=== PATIENT | female | born 1995 | race Caucasian/White ===

== ENCOUNTER 2020-07-20 11:48 | Outpatient (CLI) | payer OTHER ==
[2020-07-20 23:15] LABS: SARS-CoV-2 PCR by NAA Not Detected (NotDetected)
== END 2020-07-20 11:49 | disposition home or self-care (01) ==
LOC: CSHLAB 11:48
PROVIDERS: ATTEND Family Medicine
DX: Z20.822 Contact with and (suspected) exposure to COVID-19 (principal)
CPT/HCPCS: 87635; U0003; U0005

== ENCOUNTER 2020-07-23 10:03 | Inpatient (IN) | payer OTHER ==
[2020-07-23] MEDS ORDERED: Famotidine/PF 20 mg/2ml Vial SLOW IVP PRN (11:26)
[2020-07-23] MEDS ORDERED: hydrALAZINE 20 MG/ML VIAL SLOW IVP PRN ×2 (11:26→14:14)
[2020-07-23] MEDS ORDERED: Promethazine HCl 25 MG/ML VIAL IM PRN ×2 (11:26→14:14)
[2020-07-23] MEDS ORDERED: Lactated Ringer's 1,000 ML IV SCH (11:26)
[2020-07-23] MEDS ORDERED: CEFAZOLIN 2 GM in Premix Bag 1 BAG IVPB SCH (11:26)
[2020-07-23] MEDS ORDERED: Bicitra 30 ML UDCUP PO PRN (11:26)
[2020-07-23] MEDS ORDERED: Ondansetron PF 4 MG/2 ML Vial IVP PRN ×2 (11:26→14:14)
[2020-07-23 11:27] VITALS: BMI 40.3
[2020-07-23 11:36] LABS: Hemoglobin 9.7 g/dL (12.0-15.5); Mean Platelet Volume 10.4 fl (7.4-10.4); Platelet Count 281 10x3/uL (150-450); RBC Distribution Width 13.1 % (11.5-14.5); Red Blood Cell (RBC) Count 4.04 10x6/uL (3.90-5.03); White Blood Cell (WBC) Count 7.6 10x3/uL (3.5-10.5)
[2020-07-23] MEDS ORDERED: Morphine PF 10 MG/10 ML VIAL ONE (12:04)
[2020-07-23] MEDS ORDERED: ePHEDrine Sulfate 50 MG/10 ML VIAL ONE (12:04)
[2020-07-23 12:05] LABS: Hep B Surf Ag Non-Reactive S/CO (NonReactive)
[2020-07-23] MEDS ORDERED: Oxytocin 10 UNITS/ML VIAL ONE (12:05)
[2020-07-23 12:06] LABS: Syphilis Antibody Nonreactive (Nonreactive); Syphilis Antibody Index 0.03 S/CO (<1.00 Non-Reactive)
[2020-07-23] MEDS ORDERED: PHENYLEPHRINE-NS 100 MCG/ML 10 ML SYRINGE ONE (12:07)
[2020-07-23 12:08] LABS: HBSAg Index 0.15 S/CO (0-0.99)
[2020-07-23] MEDS ORDERED: Ondansetron PF 4 MG/2 ML Vial ONE (12:33)
[2020-07-23] MEDS ORDERED: Dexamethasone 4 mg/ml Vial ONE (12:33)
[2020-07-23] MEDS ORDERED: Adacel (T-DAP) 0.5 ML SYRINGE IM ONE (14:14)
[2020-07-23] MEDS ORDERED: Meperidine HCl/PF 25 MG/ML VIAL IM PRN (14:14)
[2020-07-23] MEDS ORDERED: Bisacodyl 10 MG SUPP PR PRN (14:14)
[2020-07-23] MEDS ORDERED: diphenhydrAMINE 25 MG CAP PO PRN (14:14)
[2020-07-23] MEDS ORDERED: Lanolin Ointment 7 GM TUBE TOP PRN (14:14)
[2020-07-23] MEDS ORDERED: Ketorolac Tromethamine 30 MG/ML VIAL ONE (15:05)
[2020-07-23] MEDS: Ketorolac Tromethamine 30 MG/ML VIAL IVP SCH ×2 (15:07→22:25)
[2020-07-23] MEDS ORDERED: NS w/ Oxytocin 30 units 500 ML IVPB SCH (15:15)
[2020-07-23] MEDS: Docusate Calcium (SURFAK) 240 MG CAP PO SCH (20:48)
[2020-07-23] MEDS: Ferrous Sulfate 325 MG TAB PO SCH (20:48)
[2020-07-24 06:00] LABS: Hemoglobin 7.5 g/dL (12.0-15.5); Mean Corpuscular Hemoglobin 23.3 pg (27.0-33.0); Mean Corpuscular Volume 75.2 fl (81.6-98.3); Mean Platelet Volume 10.9 fl (7.4-10.4); Platelet Count 228 10x3/uL (150-450); Red Blood Cell (RBC) Count 3.22 10x6/uL (3.90-5.03); White Blood Cell (WBC) Count 10.4 10x3/uL (3.5-10.5)
[2020-07-24] MEDS: Ketorolac Tromethamine 30 MG/ML VIAL IVP SCH (06:05)
[2020-07-24] MEDS: Prenatal Vitamin 1 TAB PO SCH (09:11)
[2020-07-24] MEDS: HYDROcodone/Acetaminophen 5/325 mg Tablet PO PRN ×3 (09:12→21:50)
[2020-07-24] MEDS: Docusate Calcium (SURFAK) 240 MG CAP PO SCH ×2 (09:12→21:44)
[2020-07-24] MEDS: Ferrous Sulfate 325 MG TAB PO SCH ×2 (09:12→21:44)
[2020-07-24] MEDS: Ibuprofen 800 MG TAB PO SCH ×2 (12:14→21:43)
[2020-07-24] MEDS: Simethicone Chewable 80 MG TAB PO PRN (21:44)
[2020-07-25] MEDS: HYDROcodone/Acetaminophen 5/325 mg Tablet PO PRN ×3 (05:17→17:54)
[2020-07-25] MEDS: Ibuprofen 800 MG TAB PO SCH ×2 (05:18→17:50)
[2020-07-25] MEDS: Ferrous Sulfate 325 MG TAB PO SCH ×2 (09:35→21:53)
[2020-07-25] MEDS: Docusate Calcium (SURFAK) 240 MG CAP PO SCH ×2 (09:35→21:53)
[2020-07-25] MEDS: Prenatal Vitamin 1 TAB PO SCH (09:35)
[2020-07-26] MEDS: Ibuprofen 800 MG TAB PO SCH ×3 (01:12→10:12)
[2020-07-26] MEDS: HYDROcodone/Acetaminophen 5/325 mg Tablet PO PRN ×2 (02:31→08:06)
[2020-07-26 08:04] VITALS: BP 141/89; TEMP 97.9
[2020-07-26] MEDS: Prenatal Vitamin 1 TAB PO SCH (08:06)
[2020-07-26] MEDS: Docusate Calcium (SURFAK) 240 MG CAP PO SCH (08:07)
[2020-07-26] MEDS: Ferrous Sulfate 325 MG TAB PO SCH (08:07)
[2020-07-26] MEDS: Simethicone Chewable 80 MG TAB PO PRN (10:12)
== END 2020-07-26 12:45 | disposition home or self-care (01) | DRG 788 ==
LOC: CSHLD 10:03 → CSHPP 15:34
PROVIDERS: ADMIT Family Medicine; ATTEND Family Medicine
PROC: 10D00Z1 Extraction of Products of Conception, Low, Open Approach (ICD-10-PCS; principal; 2020-07-23)
PROC: 4A0HXCZ Measurement of Products of Conception, Cardiac Rate, External Approach (ICD-10-PCS; 2020-07-23)
DX: O34.211 Maternal care for low transverse scar from previous cesarean delivery (principal); Z3A.39 39 weeks gestation of pregnancy; Z37.0 Single live birth
CPT/HCPCS: 36415; 51702; 85027; 86780; 86850; 86900; 86901; 87340; J0690; J1100; J1885; J2175; J2270; J2405; J2590; Q0163

== ENCOUNTER 2021-12-25 14:28 | Day surgery (SDC) | payer OTHER ==
[2021-12-25] MEDS ORDERED: hydrALAZINE 20 MG/ML VIAL SLOW IVP PRN (18:38)
== END 2021-12-25 18:13 | disposition home or self-care (01) ==
LOC: CSHLD/OP 14:28
PROVIDERS: ATTEND Obstetrics & Gynecology
DX: O16.3 Unspecified maternal hypertension, third trimester (principal); Z3A.35 35 weeks gestation of pregnancy; O26.893 Other specified pregnancy related conditions, third trimester; R51.9 Headache, unspecified; Z79.899 Other long term (current) drug therapy; Z98.890 Other specified postprocedural states
CPT/HCPCS: 99282